=== PATIENT | male | born 1940 | race Caucasian/White ===

== ENCOUNTER 2016-08-31 10:24 | Outpatient (CLI) | payer MEDICARE, OTHER ==
[2016-08-31 13:26] LABS: HEMOGLOBIN A1C 0.99 g/dL
== END 2016-08-31 10:25 | disposition home or self-care (01) ==
LOC: LAB.WCP 10:24
PROVIDERS: ATTEND Family Medicine
DX: E11.29 Type 2 diabetes mellitus with other diabetic kidney complication (principal); N18.2 Chronic kidney disease, stage 2 (mild); I12.9 Hypertensive chronic kidney disease with stage 1 through stage 4 chronic kidney disease, or unspecified chronic kidney disease
CPT/HCPCS: 36415; 83036

== ENCOUNTER 2017-02-05 10:56 | Outpatient (CLI) | payer MEDICARE, OTHER ==
[2017-02-05 11:19] LABS: BASOPHILS % (AUTO) 0.5 %; EOSINOPHILS # (AUTO) 0.3 10^3/uL (0.0-0.7); EOSINOPHILS % (AUTO) 3.1 %; HCT - HEMATOCRIT 35.1 % (42.0-52.0); HGB - HEMOGLOBIN 11.3 g/dL (14.0-18.0); LYMPHOCYTES # (AUTO) 0.5 10^3/uL (1.5-3.5); MEAN CORPUSCULAR HEMOGLOBIN 25.4 pg (27.0-31.0); MEAN CORPUSCULAR HGB CONC 32.2 g/dL (32.0-36.0); MEAN CORPUSCULAR VOLUME 78.9 fL (80.0-94.0); MONOCYTES # (AUTO) 0.7 10^3/uL (0.0-1.0); MONOCYTES % (AUTO) 7.6 %; NEUTROPHILS # (AUTO) 7.8 10^3/uL (1.5-6.6); NEUTROPHILS % (AUTO) 83.8 %; RED BLOOD COUNT 4.45 10^6/uL (4.70-6.10); RED CELL DISTRIBUTION WIDTH 19.1 % (12.0-15.0); UNCORRECTED WHITE BLOOD COUNT 9.3 x10^3/uL; WHITE BLOOD COUNT 9.3 x10^3/uL (4.8-10.8)
[2017-02-05 11:31] LABS: CREATININE 1.3 mg/dL (0.6-1.2); POTASSIUM 4.8 mmol/L (3.5-5.0)
[2017-02-05 11:32] LABS: ALBUMIN/GLOBULIN RATIO 0.8 (1.0-2.2); BILIRUBIN,TOTAL 0.7 mg/dL (0.2-1.0); CALCIUM 10.2 mg/dL (8.5-10.3); TOTAL PROTEIN 7.4 g/dL (6.7-8.2)
[2017-02-05 11:36] LABS: HEMOGLOBIN A1C 0.74 g/dL
== END 2017-02-05 10:57 | disposition home or self-care (01) ==
LOC: LAB 10:56
PROVIDERS: ATTEND Family Medicine
DX: C49.9 Malignant neoplasm of connective and soft tissue, unspecified (principal); E11.22 Type 2 diabetes mellitus with diabetic chronic kidney disease; I12.9 Hypertensive chronic kidney disease with stage 1 through stage 4 chronic kidney disease, or unspecified chronic kidney disease; N18.2 Chronic kidney disease, stage 2 (mild); E78.5 Hyperlipidemia, unspecified
CPT/HCPCS: 36415; 80053; 83036; 85025

== ENCOUNTER 2017-04-12 13:12 | Outpatient (CLI) | payer MEDICARE, OTHER | END 2017-04-12 13:13 | disposition critical access hospital (66) | LOC: EMS 13:12 | PROVIDERS: ATTEND Surgery | DX: R50.9 Fever, unspecified (principal) | CPT/HCPCS: A0425; A0429 ==

== ENCOUNTER 2017-04-12 13:31 | Emergency (ER) | payer MEDICARE, OTHER ==
--- NOTE | 2017-04-12 13:48 | ED Physician Documentation ---
PD HPI URI - Stated complaint Stated Complaint: SOA - Chief complaint Chief Complaint: Fever - History obtained from History obtained from: Patient - History of Present Illness Timing - onset: How many days ago (he has had general weakness and some feeling of dyspnea for several days. Got chemo yesterday and feeling more tired and weak.) Timing details: Waxing and waning Associated symptoms: Dry cough. No: Fever, Chills, Nasal congestion, Rhinorrhea , Swollen nodes, Productive cough Contributing factors: Immunocompromised. No: Sick contact, Travel, COPD / asthma Improves by: Rest Worsened by: Activity Recently seen: Clinic ([facility] yesterday for chemo (3rd dose of chemo this round, but yesterday was a new med for him). He was feeling weak and tired, with nausea. But Home Health nurse saw him today and took vitals with temp 100.1 at home. He did not feel sick/feverish.) Review of Systems Constitutional: reports: Fatigue. denies: Fever, Chills, Myalgias Nose: denies: Rhinorrhea / runny nose, Congestion Throat: denies: Sore throat Cardiac: denies: Chest pain / pressure, Palpitations Respiratory: reports: Dyspnea (mild), Cough. denies: Wheezing GI: reports: Nausea. denies: Abdominal Pain, Vomiting, Diarrhea : denies: Dysuria, Frequency Skin: denies: Rash, Lesions Musculoskeletal: denies: Neck pain, Back pain Neurologic: reports: Generalized weakness. denies: Focal weakness, Numbness, Near syncope PD PAST MEDICAL HISTORY - Past Medical History Cardiovascular: Hypertension, High cholesterol Neuro: None Endocrine/Autoimmune: Type 2 diabetes : Renal insuffiency Psych: None Musculoskeletal: Gout - Past Surgical History Ortho: Amputation - Present Medications Home Medications: Ambulatory Orders Medication Instructions Recorded Confirmed Oxycodone HCl/Acetaminophen 1 - 2 tab PO Q4H PRN #15 tablet 01/09/17 04/12/17 [Percocet 5-325 mg Tablet] Acetaminophen 650 mg PO Q6HR 04/07/17 04/12/17 Allopurinol 300 mg PO DAILY 04/07/17 04/12/17 Aspirin 81 mg PO DAILY 04/07/17 04/12/17 Atorvastatin [Lipitor] 10 mg PO QPM 04/07/17 04/12/17 Citalopram [CeleXA] 20 mg PO DAILY 04/07/17 04/12/17 Docusate Sodium 200 mg PO BID 04/07/17 04/12/17 Finasteride 5 mg PO DAILY 04/07/17 04/12/17 Insulin Glargine [Lantus Solostar] 50 unit SQ DAILY 04/07/17 04/12/17 Pregabalin [Lyrica] 75 mg PO BID 04/07/17 04/12/17 Prochlorperazine [Compazine] 10 mg PO Q6H PRN 04/07/17 04/12/17 SITagliptin [Januvia] 100 mg PO DAILY 04/07/17 04/12/17 Turmuric 2 tab PO DAILY 04/07/17 04/12/17 Albuterol Sulf [Ventolin Hfa 1 - 2 puffs INH Q4HR PRN #1 inhaler 04/12/17 Inhaler] - Allergies Allergies/Adverse Reactions: Allergies Allergy/AdvReac Type Severity Reaction Status Date / Time No Known Drug Allergies Allergy Verified 04/12/17 13:44 - Social History Does the pt smoke?: No Smoking Status: Unknown if ever smoked PD ED PE NORMAL - Vitals Vital signs reviewed: Yes - General General: Alert and oriented X 3, No acute distress, Well developed/nourished - HEENT HEENT: Ears normal, Moist mucous membranes, Pharynx benign - Neck Neck: Supple, no meningeal sign, No adenopathy - Cardiac Cardiac: RRR, No murmur - Respiratory Respiratory: Clear bilaterally - Abdomen Abdomen: Normal bowel sounds, Soft, Non tender, Non distended - Back Back: No CVA TTP - Derm Derm: Normal color, Warm and dry, Other (mild eczema lower leg) - Extremities Extremities: No deformity, No tenderness to palpate, Other (left prior leg amputation noted) Results - Vitals Vitals: Oxygen O2 Source Room air - Labs Labs: Microbiology 04/12/17 15:41 Blood Culture - Preliminary Blood NO GROWTH AFTER 1 DAY 04/12/17 14:27 Blood Culture - Preliminary Blood NO GROWTH AFTER 1 DAY Laboratory Tests 04/12/17 04/12/17 04/12/17 14:27 14:27 14:27 WBC 1.6 L* RBC 3.51 L Hgb 9.0 L Hct 27.7 L MCV 78.9 L MCH 25.5 L MCHC 32.3 RDW 17.9 H Plt Count 135 MPV 8.0 Neut # 1.4 L Lymph # 0.1 L [place] # 0.1 Eos # 0.0 Baso # 0.0 Absolute Nucleated RBC 0.01 Nucleated RBC % 0.3 Manual Slide Review Indicated RBC Morph Micro Appear 3+ ANISOCYTOSIS Sodium 136 Potassium 4.4 Chloride 103 Carbon Dioxide 22 Anion Gap 11.0 BUN 28 H Creatinine 1.8 H Estimated GFR (MDRD) 37 L Glucose 62 L Lactic Acid 1.1 Calcium 8.9 Total Bilirubin 0.9 AST 55 H ALT 79 H Alkaline Phosphatase 225 H Total Protein 6.5 L Albumin 2.4 L Globulin 4.1 Albumin/Globulin Ratio 0.6 L Lipase 41 Influenza A (Rapid) Influenza B (Rapid) Influenza Types A,B Ag 04/12/17 14:45 WBC RBC Hgb Hct MCV MCH MCHC RDW Plt Count MPV Neut # Lymph # [place] # Eos # Baso # Absolute Nucleated RBC Nucleated RBC % Manual Slide Review RBC Morph Micro Appear Sodium Potassium Chloride Carbon Dioxide Anion Gap BUN Creatinine Estimated GFR (MDRD) Glucose Lactic Acid Calcium Total Bilirubin AST ALT Alkaline Phosphatase Total Protein Albumin Globulin Albumin/Globulin Ratio Lipase Influenza A (Rapid) Negative Influenza B (Rapid) Negative Influenza Types A,B Ag - - Rads (name of study) chest Radiology: Prelim report reviewed ( left lower walter airspace disease, no pneumonia) PD MEDICAL DECISION MAKING - ED course Complexity details: reviewed results (CXR suggesting some atelectasis. ), considered differential, d/w patient, d/w managing consultant (Dr. Ng, his Oncologist. Did not suggest abx as his chemo he jsut had does not suppress immune system. ) Departure - Departure Disposition: 01 Home, Self Care Clinical Impression: Low grade fever, Atelectasis Dyspnea Qualifiers: Dyspnea type: shortness of breath Qualified Code(s): R06.02 - Shortness of breath Condition: Stable Record reviewed to determine appropriate education?: Yes Follow-Up: Marcelino Curry MD [Primary Care Provider] - Berenice,Jen Cunningham MD [Physician No Access] - Prescriptions: Albuterol Sulf [Ventolin Hfa Inhaler] 1 - 2 puffs INH Q4HR PRN #1 inhaler PRN Reason: Shortness Of Air/Wheezing Comments: Continue usual medications. Purposeful deep breathing periodically. Use an albuterol inhaler 2 puffs 4 times a day for the next week. Follow-up with your oncologist ([facility]) later this week, call them tomorrow or the next day to update on your condition. Return if worsening symptoms or problems. Discharge Date/Time: 04/12/17 17:25
[2017-04-12] MEDS ORDERED: SODIUM CHLORIDE 0.9% 1,000 ML IV ONE (14:06)
[2017-04-12] MEDS ORDERED: ONDANSETRON 4 MG/2 ML VIAL IVP STA (14:07)
[2017-04-12 14:40] LABS: BASOPHILS % (AUTO) 0.3 %; EOSINOPHILS % (AUTO) 0.9 %; LYMPHOCYTES # (AUTO) 0.1 10^3/uL (1.5-3.5); LYMPHOCYTES % (AUTO) 8.2 %; MEAN CORPUSCULAR HEMOGLOBIN 25.5 pg (27.0-31.0); MEAN CORPUSCULAR HGB CONC 32.3 g/dL (32.0-36.0); MEAN CORPUSCULAR VOLUME 78.9 fL (80.0-94.0); MONOCYTES # (AUTO) 0.1 10^3/uL (0.0-1.0); MONOCYTES % (AUTO) 5.1 %; NEUTROPHILS # (AUTO) 1.4 10^3/uL (1.5-6.6); NEUTROPHILS % (AUTO) 85.5 %; PLT - PLATELET COUNT 135 10^3/uL (130-450); RED BLOOD COUNT 3.51 10^6/uL (4.70-6.10); RED CELL DISTRIBUTION WIDTH 17.9 % (12.0-15.0)
[2017-04-12 14:45] LABS: WHITE BLOOD COUNT 1.6 x10^3/uL (4.8-10.8)
[2017-04-12 14:49] LABS: ALBUMIN 2.4 g/dL (3.2-5.5); ALBUMIN/GLOBULIN RATIO 0.6 (1.0-2.2); BILIRUBIN,TOTAL 0.9 mg/dL (0.2-1.0); CALCIUM 8.9 mg/dL (8.5-10.3); CREATININE 1.8 mg/dL (0.6-1.2); TOTAL PROTEIN 6.5 g/dL (6.7-8.2)
[2017-04-12 14:55] LABS: RBC MORPHOLOGY (MULTIPLE) 3+ ANISOCYTOSIS (NORMAL)
--- NOTE | 2017-04-12 15:27 | XRAY Report ---
EXAM: CHEST RADIOGRAPHY EXAM DATE: 04/12/2017 03:05 PM. CLINICAL HISTORY: Chest pain left sided. COMPARISON: 01/09/2017. TECHNIQUE: 2 views. FINDINGS: Lungs/Pleura: There is increased opacity within the left mid and lower lung. Right lung is relatively clear. There is no evidence of pneumothorax. Mediastinum: There is cardiomegaly. There is thoracic aortic calcification. Other: Right Port-A-Cath tip terminates in the lower SVC. IMPRESSION: 1. There is cardiomegaly. 2. There is increased opacity within the left mid and lower lung. This likely represents effusion and possibly airspace disease. 3. No evidence of pneumothorax. [facility] Referring Provider Line: [phone] SITE ID: [id number]
[2017-04-12 17:16] VITALS: BP 128/86
== END 2017-04-12 17:25 | disposition home or self-care (01) ==
LOC: EDSEX → EDUNIT# → EDBD → ED 13:31
DX: R50.9 Fever, unspecified (principal); J98.11 Atelectasis; R06.02 Shortness of breath; C80.1 Malignant (primary) neoplasm, unspecified; I10 Essential (primary) hypertension; E78.00 Pure hypercholesterolemia, unspecified; E11.9 Type 2 diabetes mellitus without complications; Z79.4 Long term (current) use of insulin; Z92.21 Personal history of antineoplastic chemotherapy
CPT/HCPCS: 36415; 71046; 80053; 83605; 83690; 85025; 87040; 87275; 87276; 99283; 99284

== ENCOUNTER 2017-05-04 10:03 | Outpatient (CLI) | payer MEDICARE, OTHER | END 2017-05-04 10:04 | disposition critical access hospital (66) | LOC: EMS 10:03 | PROVIDERS: ATTEND Surgery | DX: R53.1 Weakness (principal) | CPT/HCPCS: A0425; A0427 ==

== ENCOUNTER 2017-05-04 10:38 | Emergency (ER) | payer MEDICARE, OTHER ==
--- NOTE | 2017-05-04 10:51 | ED Physician Documentation ---
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 denies: Fever Cardiac: denies: Chest pain / pressure Respiratory: reports: Dyspnea GI: reports: Abdominal Pain. denies: Nausea, Vomiting, Diarrhea : denies: Dysuria (decrease urine out) Musculoskeletal: reports: Other (s/p LLE amputation) Neurologic: reports: Generalized weakness Endocrine: denies: Easy bruising / bleeding Immunocompromised: reports: Immunocompromised, Chemotherapy PD PAST MEDICAL HISTORY - Past Medical History Cardiovascular: Hypertension, High cholesterol Neuro: None Endocrine/Autoimmune: Type 2 diabetes : Renal insuffiency Psych: None Musculoskeletal: Gout - Past Surgical History Past Surgical History: Yes Ortho: Amputation - Present Medications Home Medications: Ambulatory Orders Medication Instructions Recorded Confirmed Acetaminophen 650 mg PO Q6HR PRN 04/07/17 05/04/17 Allopurinol 300 mg PO DAILY 04/07/17 05/04/17 Aspirin 81 mg PO DAILY 04/07/17 05/04/17 Finasteride 5 mg PO DAILY 04/07/17 05/04/17 Insulin Glargine [Lantus Solostar] 50 unit SQ DAILY 04/07/17 05/04/17 Pregabalin [Lyrica] 75 mg PO BID 04/07/17 05/04/17 Prochlorperazine [Compazine] 10 mg PO Q6H PRN 04/07/17 05/04/17 SITagliptin [Januvia] 100 mg PO DAILY 04/07/17 05/04/17 Turmuric 2 tab PO DAILY 04/07/17 04/12/17 Atorvastatin Calcium 20 mg PO QPM 05/04/17 05/04/17 Citalopram Hydrobromide 20 mg PO DAILY 05/04/17 05/04/17 [Citalopram HBr] LORazepam [Ativan] 0.5 mg PO TID PRN 05/04/17 05/04/17 Metoprolol Succinate [Toprol Xl] 50 mg PO DAILY 05/04/17 05/04/17 OLANZapine [Olanzapine] 5 mg PO QPM 05/04/17 05/04/17 - Allergies Allergies/Adverse Reactions: Allergies Allergy/AdvReac Type Severity Reaction Status Date / Time No Known Drug Allergies Allergy Verified 04/12/17 13:44 - Social History Does the pt smoke?: No Smoking Status: Unknown if ever smoked Does the pt drink ETOH?: No Does the pt have substance abuse?: No - Immunizations Immunizations are current?: Yes - POLST Patient has POLST: No PD ED PE NORMAL - Vitals Vital signs reviewed: Yes - General General: Alert and oriented X 3 - HEENT HEENT: PERRL - Neck Neck: Supple, no meningeal sign - Cardiac Cardiac: RRR - Respiratory Respiratory: Clear bilaterally - Abdomen Abdomen: Soft, Other (mild TTP left side, no rebound or gaurding, no pulsatile mass) - Derm Derm: Normal color, Other (cool to touch) - Neuro Neuro: Alert and oriented X 3, No motor deficit, No sensory deficit Results - Vitals Vitals: Vital Signs - 24 hr 05/04/17 05/04/17 05/04/17 10:40 10:54 11:38 Temperature 36.8 C Heart Rate 93 99 Respiratory 25 H 24 Rate Blood Pressure 105/81 H O2 Saturation 85 L 100 100 05/04/17 05/04/17 05/04/17 13:05 14:50 16:10 Temperature 37.0 C Heart Rate 89 90 92 Respiratory 22 24 24 Rate Blood Pressure 102/65 133/61 H 116/66 O2 Saturation 95 94 95 05/04/17 05/04/17 05/04/17 16:51 17:38 18:41 Temperature Heart Rate 93 102 H 105 H Respiratory 21 24 24 Rate Blood Pressure 123/66 105/64 O2 Saturation 98 100 Oxygen O2 Source Room air Oxygen Flow Rate 2 - EKG (time done) 1045 Rate: Rate (enter#) (94) Rhythm: NSR Intervals: Wide QRS Ischemia: Non specific changes - Labs Labs: Laboratory Tests 05/04/17 05/04/17 05/04/17 12:01 12:01 12:01 WBC RBC Hgb Hct MCV MCH MCHC RDW Plt Count MPV Neut # Lymph # [place] # Eos # Baso # Absolute Nucleated RBC Nucleated RBC % Manual Slide Review RBC Morph Micro Appear Sodium 137 Potassium 5.2 H Chloride 107 Carbon Dioxide 19 L Anion Gap 11.0 BUN 71 H Creatinine 4.4 H Estimated GFR (MDRD) 13 L Glucose 71 Lactic Acid 1.0 Calcium 7.8 L Total Bilirubin 2.9 H AST 95 H ALT 100 H Alkaline Phosphatase 548 H Troponin I 0.05 Total Protein 5.6 L Albumin 2.1 L Globulin 3.5 Albumin/Globulin Ratio 0.6 L Lipase 21 L Urine Color Urine Clarity Urine pH Ur Specific [place] Urine Protein Urine Glucose (UA) Urine Ketones Urine Occult Blood Urine Nitrite Urine Bilirubin Urine Urobilinogen Ur Leukocyte Esterase Urine RBC Urine WBC Ur Squamous Epith Cells Urine Bacteria Ur Microscopic Review Urine Culture Comments 05/04/17 05/04/17 12:29 13:50 WBC 0.1 L* RBC 2.96 L Hgb 7.7 L Hct 23.7 L MCV 79.9 L MCH 25.9 L MCHC 32.4 RDW 21.6 H Plt Count 27 L* MPV 8.9 Neut # 0.0 L* Lymph # 0.1 L [place] # 0.0 Eos # 0.0 Baso # 0.0 Absolute Nucleated RBC 0.00 Nucleated RBC % 1.9 Manual Slide Review Indicated RBC Morph Micro Appear 3+ ANISOCYTOSIS Sodium Potassium Chloride Carbon Dioxide Anion Gap BUN Creatinine Estimated GFR (MDRD) Glucose Lactic Acid Calcium Total Bilirubin AST ALT Alkaline Phosphatase Troponin I Total Protein Albumin Globulin Albumin/Globulin Ratio Lipase Urine Color DARK YELLOW Urine Clarity CLEAR Urine pH 5.5 Ur Specific [place] 1.020 Urine Protein 30 H Urine Glucose (UA) NEGATIVE Urine Ketones NEGATIVE Urine Occult Blood TRACE-LYSE Urine Nitrite NEGATIVE Urine Bilirubin NEGATIVE Urine Urobilinogen 0.2 (NORMAL) Ur Leukocyte Esterase NEGATIVE Urine RBC 0-5 Urine WBC 0-3 Ur Squamous Epith Cells RARE Squamous Urine Bacteria Moderate H Ur Microscopic Review INDICATED Urine Culture Comments INDICATED - Rads (name of study) CXR Radiology: See rad report (L pleural effusion, not new but increased, wispy oapcities R lung culd be atelectasis) CT AP Radiology: See rad report (diverticulosis no -itis, circumferential wall thickening distal sigmoid neoplasm not exclduded, no ascites, no free air, gallstones/sludge without acute preston, malignant left pleural effusion, tiny lung nodules may be inflammatory rather than neoplastic, radha small fat containing hernias) ruq sono Radiology: See rad report CXR 2 Radiology: See rad report (same effusion, increased aeration, some spetal lines c/w developing edema) PD MEDICAL DECISION MAKING - ED course ED course: chart review - seen for similar 04/12, blood cx were neg pt has no POLST in our system work up today notable for worsening pleural effusion and atelectasis on CXR sats better on suppl O2, plt ct 27 so tapping effusion not safe gallstones and elev LFTs - will get sono and acute new renal insuff creat 4.4 and dec urine output - no obstructive process seen on CT will place fry - if making urine (and if not acute preston) and since K is fine , consider admit to [facility] for IVF and further care if anuric or has a surgical issue may need transfer fry in - making urine 500 cc so far UA + for bacteria - given neutropenic started antibiotics - gave zosyn as also concerned about GB and that would cover both after IVF for SIRS pt more soa and wheezing some, rept CXR shows some edema, will not bolus more called transfer center and spoke to transfer RN approx [phone] [facility] [address] [facility] returned my call and accepts pt in transfer approx [address] [facility] confirmed a bed awaiting transport pt getting worse - his BP is holding but his is more and more SOA , sat 90% on 2 L now, some edema on rpt CXR, as his BP is a bit better and he is making urine will give a small dose of lasix, dced all IVF, will try BiPAP - considered changing to [facility] but they cannot fly due to weather - will need to proceed with ground transfer - d/w lead medic - will update [facility] as well Departure - Departure Disposition: 02 Transfer Acute Care Hosp Clinical Impression: SIRS (systemic inflammatory response syndrome), Cholecystitis, Pancytopenia, Hypoxia, Hypoglycemia UTI (urinary tract infection) Qualifiers: Urinary tract infection type: site unspecified Hematuria presence: without hematuria Qualified Code(s): N39.0 - Urinary tract infection, site not specified Renal failure Qualifiers: Renal failure chronicity: acute Acute renal failure type: unspecified Qualified Code(s): N17.9 - Acute kidney failure, unspecified Condition: Serious Discharge Date/Time: 05/04/17 18:50
[2017-05-04] MEDS ORDERED: DEXTROSE 5%-0.45% NACL 1,000 ML IV ONE (10:54)
[2017-05-04] MEDS ORDERED: SODIUM CHLORIDE 0.9% 1,000 ML IV ONE ×2 (10:54→12:42)
--- NOTE | 2017-05-04 11:29 | XRAY Preliminary Report ---
Exam: XR CHEST 1 VIEW X-RAY IMPRESSION: 1. Large left pleural effusion, increased from before. 2. New mild wispy airspace opacities in the right lung suggesting atelectasis. [facility] SITE ID: [id number]
--- NOTE | 2017-05-04 11:30 | XRAY Report ---
EXAM: CHEST RADIOGRAPHY EXAM DATE: 05/04/2017 10:52 AM. CLINICAL HISTORY: Sarcoma chemo hypotensive. COMPARISON: CT abdomen and pelvis today. Chest radiograph 04/12/2017. TECHNIQUE: 1 view. Projection is mildly lordotic. FINDINGS: Lungs/Pleura: Large left pleural effusion. No pneumothorax. Mild bandlike opacities suggesting atelec tasis in the right lung greatest inferiorly. Mediastinum: Mild cardiomegaly. Mild aortic arch calcification. Right IJ Port-A-Cath, as before. Other: None. IMPRESSION: 1. Large left pleural effusion, increased from before. 2. New mild wispy airspace opacities in the right lung suggesting atelectasis. [facility] Referring Provider Line: [phone] SITE ID: [id number]
--- NOTE | 2017-05-04 11:42 | CT Report ---
EXAM: CT ABDOMEN AND PELVIS EXAM DATE: 05/04/2017 11:16 AM. CLINICAL HISTORY: Sarcoma chemo weak hypotension abd pain. COMPARISONS: Chest radiograph today. TECHNIQUE: Routine helical CT imaging was performed through the abdomen and pelvis. IV contrast: No. Enteric contrast: No. Reconstructions: Coronal and sagittal. In accordance with CT protocol optimization, one or more of the following dose reduction techniques w ere utilized for this exam: automated exposure control, adjustment of mA and/or KV based on patient s ize, or use of iterative reconstructive technique. FINDINGS: Lung Bases: Incompletely visualized large left pleural effusion with lobular soft tissue masses in th e pleural space greatest posteriorly measuring up to about 5.8 x 3.3 cm. Marked volume loss and conso lidation consistent with atelectasis in the left lower lobe and to lesser extent the lingula with air bronchograms without evidence of central airway obstruction. In the nondependent portions of the lef t hemithorax, there are pleural-based masses with the largest medially measuring up to 2.9 cm. There are multiple poorly marginated subcentimeter nodular foci laterally in the right upper lobe, incomple tely visualized. There is mild wispy right basilar atelectasis. Liver: Unremarkable. Gallbladder/Bile Ducts: Mild dependent hyperdensity suggesting stones or sludge. No evidence of acute cholecystitis. No ductal dilatation. Spleen: Unremarkable. Pancreas: Mild generalized pancreatic atrophy. Multiple small pancreatic calcifications. No peripancr eatic edema or fluid. Adrenal Glands: Normal. Kidneys: Multiple moderate to large bilateral renal cortical cysts including exophytic cysts at the l eft lower pole. No hydronephrosis. Peritoneal Cavity/Bowel: An opacified stomach and small bowel are nondistended. The appendix is not c learly identified. There is moderate to marked diverticulosis throughout the colon. There is no phil pericolonic fat stranding. There is apparent segmental moderate wall thickening in the distal sigmoi d colon without fat stranding. No lymphadenopathy, ascites, or pneumoperitoneum. Pelvic Organs: Bladder, prostate gland, and seminal vesicles are unremarkable. Vasculature: Moderate aortoiliac atherosclerotic calcification without abnormal dilation. Bones: Mild multilevel lower thoracic degenerative disk disease. Severe L1-L2 and moderate L2-L3 dege nerative disk disease. Spondylotic renal anterolisthesis L4 on L5. Severe bilateral L4-L5 and moderat e bilateral L5-S1 facet osteoarthritis. 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 Small amount of heterotopic ossification just lateral to the empty hip joint. No distinct lyt ic or sclerotic bone lesions. Other: Small right and tiny left fat-containing inguinal hernias. Minimal dependent body wall edema. Mild asymmetric left gynecomastia. IMPRESSION: 1. Moderate to marked diverticulosis throughout the colon without evidence of acute diverticulitis. 2. [id number] apparent circumferential wall thickening in the distal sigmoid colon. Neoplasm is not excluded. No evidence of acute inflammation. 3. No ascites or pneumoperitoneum. 4. Mildly hyperdense dependent gallstones or sludge without evidence of acute cholecystitis. 5. Incompletely visualized large malignant left pleural effusion. 6. Multiple tiny nodules scattered in the right upper lobe which may be postinflammatory rather than neoplastic. 7. Left lower extremity amputation. 8. Small right and tiny left fat-containing inguinal hernias. [facility] Referring Provider Line: [phone] SITE ID: [id number]
[2017-05-04 12:26] LABS: ALBUMIN 2.1 g/dL (3.2-5.5); ALBUMIN/GLOBULIN RATIO 0.6 (1.0-2.2); BILIRUBIN,TOTAL 2.9 mg/dL (0.2-1.0); CALCIUM 7.8 mg/dL (8.5-10.3); CREATININE 4.4 mg/dL (0.6-1.2); TOTAL PROTEIN 5.6 g/dL (6.7-8.2)
[2017-05-04 12:51] LABS: EOSINOPHILS % (AUTO) 3.3 %; HGB - HEMOGLOBIN 7.7 g/dL (14.0-18.0); LYMPHOCYTES # (AUTO) 0.1 10^3/uL (1.5-3.5); LYMPHOCYTES % (AUTO) 54.2 %; MEAN CORPUSCULAR HEMOGLOBIN 25.9 pg (27.0-31.0); MEAN CORPUSCULAR HGB CONC 32.4 g/dL (32.0-36.0); MEAN CORPUSCULAR VOLUME 79.9 fL (80.0-94.0); MEAN PLATELET VOLUME 8.9 fL (7.4-11.4); MONOCYTES % (AUTO) 18.9 %; NEUTROPHILS % (AUTO) 23.6 %; RED BLOOD COUNT 2.96 10^6/uL (4.70-6.10); RED CELL DISTRIBUTION WIDTH 21.6 % (12.0-15.0)
[2017-05-04 13:01] LABS: PLT - PLATELET COUNT 27 10^3/uL (130-450); WHITE BLOOD COUNT 0.1 x10^3/uL (4.8-10.8)
[2017-05-04 13:10] LABS: RBC MORPHOLOGY (MULTIPLE) 3+ ANISOCYTOSIS (NORMAL)
[2017-05-04 14:11] LABS: GLUCOSE, URINE (UA) NEGATIVE (NEGATIVE); KETONES,URINE (UA) NEGATIVE (NEGATIVE); LEUKOCYTE ESTERASE, URINE NEGATIVE (NEGATIVE); NITRITE,URINE NEGATIVE (NEGATIVE); OCCULT BLOOD,URINE TRACE-LYSE (NEGATIVE); PH,URINE 5.5 PH (5.0-7.5); PROTEIN,URINE 30 mg/dL (NEGATIVE); UROBILINOGEN,URINE 0.2 (NORMAL) E.U./dL (NORMAL)
[2017-05-04 14:13] LABS: CLARITY,URINE CLEAR (CLEAR)
[2017-05-04 14:16] LABS: BILIRUBIN,URINE NEGATIVE (NEGATIVE); ICTOTEST,URINE NEGATIVE
[2017-05-04 14:24] LABS: BACTERIA,URINE Moderate /HPF (None Seen); RBC,URINE 0-5 /HPF (0-5); SQUAMOUS EPITHELIAL CELL,UR RARE Squamous (<= Few)
[2017-05-04] MEDS ORDERED: PIPERACILLIN/TAZOBACTAM 3.375 GM in SODIUM CHLORIDE 0.9% MINIBAG 100 ML IV STA (14:36)
--- NOTE | 2017-05-04 15:28 | Ultrasound Report ---
LIMITED ABDOMINAL ULTRASOUND: CLINICAL INDICATION: Elevated bilirubin. TECHNIQUE: Real-time scanning was performed with it sales representative static images obtained. FINDINGS: Ultrasound of the right upper quadrant was performed. Image quality is degraded by patient's respiratory motion. The liver measures 14.7 cm. Hepatic echogenicity is increased, compatible with fatty infiltration. No focal parenchymal lesion or intrahepatic biliary dilatation is seen. The common bile duct measures 6 mm. The gallbladder demonstrates multiple small calculi. The wall is thickened. No pericholecystic fluid is seen. The right kidney measures 15.5 cm, and demonstrates no hydronephrosis. No free fluid is present. IMPRESSION: CHOLELITHIASIS, WITH GALLBLADDER WALL THICKENING, SUSPICIOUS FOR ACUTE CHOLECYSTITIS. NO EVIDENCE OF BILIARY OBSTRUCTION. TD: 05/04/2017 15:27
[2017-05-04] MEDS ORDERED: LEVALBUTEROL 1.25 MG/3 ML NEB INH STA (15:29)
--- NOTE | 2017-05-04 16:03 | XRAY Report ---
EXAM: CHEST RADIOGRAPHY EXAM DATE: 05/04/2017 03:46 PM. CLINICAL HISTORY: Sepsis, given IVF, now soa wheezing. COMPARISON: An earlier image of the same date. TECHNIQUE: 1 view. FINDINGS: Lungs/Pleura: Improved degree of inspiration. Diffuse hazy prominence of lung markings. Atelectasis i n the left base. No definite right effusion. Moderate to large left pleural effusion. No pneumothorax . Septal lines. Mediastinum: Moderate cardiomegaly, follow extent difficult to define, but probably decreased in size slightly. Mild vascular fullness. Other: Right Port-A-Cath, chronic findings. IMPRESSION: 1. Improved aeration. 2. Cardiovascular fullness with septal lines, probable congestive failure. 3. Moderate to large left pleural effusion. [facility] Referring Provider Line: [phone] SITE ID: [id number]
[2017-05-04] MEDS ORDERED: FUROSEMIDE 20 MG/2 ML VIAL IVP STA (18:22)
[2017-05-04 18:42] VITALS: BP 105/64
== END 2017-05-04 18:50 | disposition short-term general hospital (02) ==
LOC: EDUNIT# → ED 10:38
DX: R65.10 Systemic inflammatory response syndrome (SIRS) of non-infectious origin without acute organ dysfunction (principal); K81.9 Cholecystitis, unspecified; D61.818 Other pancytopenia; R09.02 Hypoxemia; E11.649 Type 2 diabetes mellitus with hypoglycemia without coma; N39.0 Urinary tract infection, site not specified; N17.9 Acute kidney failure, unspecified; C80.1 Malignant (primary) neoplasm, unspecified; I10 Essential (primary) hypertension; Z79.4 Long term (current) use of insulin; Z92.21 Personal history of antineoplastic chemotherapy; Z79.82 Long term (current) use of aspirin
CPT/HCPCS: 36415; 51702; 71045; 74176; 76705; 80053; 81001; 83605; 83690; 84484; 85025; 87040; 87086; 93005; 94640; 94660; 96361; 96374; 96375; 99284; 99285; J7614; 81003

== ENCOUNTER 2017-05-04 19:05 | Outpatient (CLI) | payer MEDICARE, OTHER | END 2017-05-04 19:06 | disposition short-term general hospital (02) | LOC: EMS 19:05 | PROVIDERS: ATTEND Surgery | DX: N17.9 Acute kidney failure, unspecified (principal) | CPT/HCPCS: A0425; A0426 ==